=== PATIENT | female | born 1975 | race Caucasian/White ===

== ENCOUNTER → 2020-10-01 15:55 | Outpatient (CLI) | payer BC, SELFPAY ==
[2020-10-01 16:37] LABS: COVID19 -Nasal RAPID Negative (Negative)
== END ==
PROVIDERS: Visit Provider Nurse Practitioner
DX: Z20.822 Contact with and (suspected) exposure to COVID-19 (principal); J02.9 Acute pharyngitis, unspecified; R51.9 Headache, unspecified
CPT/HCPCS: 87635